=== PATIENT | male | born 1965 | race Two or more races ===

== ENCOUNTER → 2025-04-07 | Outpatient (CLI) | payer MEDICAID, SELFPAY ==
--- NOTE | 2025-04-07 16:00 | XR_ITS ---
Examination: CT chest, without intravenous contrast. Sagittal and coronal 2-D reconstructions. Exam date and time: April 07, 2025 at 1604 hours INDICATIONS: Chronic coughing several months CTDI:vol (mGy) 18.8 DLP: (mGycm) 563 Technique: Multiple 3.0 mm axial sections of the chest to been obtained. Bone and lung density settings are obtained. Sagittal and coronal 2-D reconstructions have been obtained. Low dose protocols were performed. One or more of the following dose reduction techniques were used; automated exposure control, adjustment of the mA and/or KV according to patient size, use of iterative reconstruction technique. Findings: No thoracic aortic aneurysm dilatation Pulmonary artery segments are not enlarged No paratracheal tracheobronchial or bronchopulmonary adenopathy 2 mm pulmonary nodule lingular segment. No pneumonia or pulmonary edema is No visualized liver or splenic lesion Absent gallbladder No pancreatic mass Moderate osteopenia IMPRESSION: No pneumonia or pulmonary edema or pleural disease 2 mm pulmonary nodule lingular segment, consider 6 month follow-up CT chest without
== END | disposition home or self-care (01) ==
PROVIDERS: Referring Provider Student in an Organized Health Care Education/Training Program; Visit Provider Student in an Organized Health Care Education/Training Program
DX: R91.1 Solitary pulmonary nodule (principal); R05.3 Chronic cough
CPT/HCPCS: 71250